=== PATIENT | male | born 1960 | race Caucasian/White ===

== ENCOUNTER → 2018-10-11 | Outpatient (CLI) | payer BC ==
--- NOTE | 2018-10-12 08:32 | Diagnostic Imaging Report ---
EXAM: Bone mineral density study 10/11/2018 12:46 PM INDICATION: ^HYPOGONADISM / VITAMIN D DEFECIENCY COMPARISON: None FINDINGS: Evaluation of the left hip and lumbar spine was performed. The study is technically adequate. The patient's fracture risk is compared to an age-matched control. Left femoral neck bone mineral density: 0.793 g/cm2, T-score is -1.0, Z-score is -0.1. Left hip total bone mineral density: 1.089 g/cm2, T-score is 0.4, Z-score is 0.8. Lumbar spine total bone mineral density: 1.2 gm/cm2, T-score is 1.0, Z-score is 1.6. IMPRESSION: Bone mineralization by WHO Classification is normal, the fracture risk is not increased. Signed by: Dr. Abel Berg MD on 10/12/2018 8:29 AM
== END ==
LOC: DX 12:27
PROVIDERS: ATTEND Internal Medicine
DX: E29.1 Testicular hypofunction (principal); E55.9 Vitamin D deficiency, unspecified
CPT/HCPCS: 77080

== ENCOUNTER → 2019-01-03 | Outpatient (CLI) | payer BC ==
[~2019-01-03] MED LIST: GADOBENATE DIMEGLUMINE 1 ML IV ONE; SODIUM CHLORIDE 0.9% 50ML 50 ML ONE
[2019-01-03 08:06] LABS: BLOOD UREA NITROGEN 16 mg/dL (7-26); BUN/CREATININE RATIO 16 (6-25); CREATININE, SERUM 0.97 mg/dL (0.72-1.25); EST GLOMERULAR FILTRATION RATE > 60 ML/MIN (60-)
--- NOTE | 2019-01-03 11:40 | Diagnostic Imaging Report ---
History: Hypogonadism in male Comparison studies: None Technique: Pre-and post coronal and sagittal T1. Coronal T2. Axial DWI through the brain. Dynamic postcontrast coronal through the sella Intravenous contrast: 20 cc of MultiHance Findings: Sella: Normal in size and configuration. Pituitary gland: Normal in size. No intra-or suprasellar lesions . Pituitary stalk: Normal in size and at midline. Optic chiasm: Well visualized and unremarkable. Cavernous sinuses: Normal in size and symmetric. Internal carotid arteries: Normal flow void appearance. Sphenoid sinuses: Mild mucosal thickening at the bilateral ethmoid and frontal sinuses, related to nonspecific inflammatory changes Few small T-2/flair hyperintensities of the bifrontal deep white matter, nonspecific and most commonly seen with mild chronic microvascular ischemic changes. There are no other abnormalities in the visualized sections through the brain. IMPRESSION: 1. No sellar abnormalities. Signed by: DR Paco Bolden M.D. on 01/04/2019 7:14 PM
== END ==
LOC: MRI 07:24
PROVIDERS: ATTEND Internal Medicine
DX: E29.1 Testicular hypofunction (principal)
CPT/HCPCS: 36415; 70553; 82565; 84520; A9577